=== PATIENT | female | born 1965 | race Caucasian/White ===

== ENCOUNTER 2021-01-27 22:55 | Emergency (ER) | payer OTHER, MEDICAID ==
[~2021-01-27] VITALS: Ht 167.6 cm; Wt 93.0 kg
[2021-01-27 23:06] VITALS: BP 144/63
[2021-01-27] MEDS ORDERED: LORazepam 1 MG TAB PO STA (23:14)
[2021-01-28 00:25] VITALS: BP 144/63
== END 2021-01-28 00:30 | disposition home or self-care (01) ==
LOC: MED 22:55
DX: T17.300A Unspecified foreign body in larynx causing asphyxiation, initial encounter (principal); R05 Cough; X58.XXXA Exposure to other specified factors, initial encounter; Y93.89 Activity, other specified; Y92.89 Other specified places as the place of occurrence of the external cause; Y99.8 Other external cause status
CPT/HCPCS: 70360; 99283